=== PATIENT | female | born 1955 | race American Indian/Alaskan Native ===

== ENCOUNTER → 2019-09-21 | Emergency (ER) | payer SELFPAY ==
[2019-09-21 10:32] VITALS: BP 143/80
== END ==
LOC: ED 10:11
DX: R10.84 Generalized abdominal pain (principal); R42 Dizziness and giddiness; Z53.21 Procedure and treatment not carried out due to patient leaving prior to being seen by health care provider
CPT/HCPCS: 93005; 93010